=== PATIENT | female | born 1930 | race Caucasian/White ===

== ENCOUNTER 2016-09-06 15:39 | Inpatient (IN) | payer MEDICARE ==
[~2016-09-06 15:39] MED LIST: Sodium Chloride 0.9% 100 ML BAG ONE
--- NOTE | 2016-09-06 16:49 | RAD ---
TWO VIEW CHEST: 09/06/16 HISTORY: Cough. COMPARISON: 02/25/12. Lungs appear clear of infiltrate. Heart size is upper normal and stable. Vasculature is within abel l range. IMPRESSION: No acute abnormality identified. POS: [facility]
[2016-09-06] MEDS ORDERED: cefTRIAXone\\ROCEPHIN 1 GM VIAL ONE (17:08)
[2016-09-06 17:27] LABS: Hemoglobin 11.7 g/dL (12.0-16.0); Mean Corpuscular HGB CONC 33.7 g/dL (32.0-36.0); Mean Corpuscular Hemoglobin 30.5 pg (27.0-31.0); Mean Corpuscular Volume 90.7 fL (81.0-99.0); Platelet Count 109 thou/uL (130-400); RBC Distribution Width 12.7 % (11.5-14.5); Red Blood Cell (RBC) Count 3.83 mill/uL (4.20-5.40); White Blood Cell (WBC) Count 6.4 thou/uL (4.8-10.8)
[2016-09-06] MEDS ORDERED: Azithromycin 500 MG VIAL ONE (17:27)
[2016-09-06 17:28] LABS: #Basophils 0.1 thou/uL (0.0-0.2); #Lymphocytes 0.8 thou/uL (1.20-3.40); #Monocytes 0.6 thou/uL (0.11-0.59); #Neutrophils 4.9 thou/uL (1.40-6.50); %Eosinophils 0.1 % (0.0-10.0); %Lymphocytes 11.9 % (21.0-51.0); %Monocytes 9.8 % (0.0-10.0); %Neutrophils 77.2 % (42.0-75.0); Mean Platelet Volume 10.9 fL (7.4-10.4)
[2016-09-06 17:29] LABS: ALT (SGPT) 17 U/L (0-55); AST (SGOT) 24 U/L (5-34); Alkaline Phosphatase 64 U/L (40-150); Anion Gap 20 mmol/L (10-20); BUN (Urea Nitrogen) 8 mg/dL (9.8-20.1); Bilirubin, Total 0.6 mg/dL (0.2-1.2); Calc. Creatinine Clearance 0 mL/min (70-130); Calcium 8.8 mg/dL (7.8-10.44); Carbon Dioxide 21 mmol/L (23-31); Chloride 95 mmol/L (98-107); Estimated GFR-MDRD 75; Globulin 2.4 g/dL (2.4-3.5); Glucose 113 mg/dL (83-110); Potassium 3.5 mmol/L (3.5-5.1); Protein, Total 6.4 g/dL (5.8-8.1); Sodium 132 mmol/L (136-145)
[2016-09-06] MEDS ORDERED: Acetaminophen 500 MG TAB ONE (17:30)
[2016-09-06 18:04] VITALS: BMI 27.3
[2016-09-06] MEDS ORDERED: Ondansetron ODT 4 MG TAB PO PRN (18:16)
[2016-09-06] MEDS: Azithromycin 500 MG in Sodium Chloride 0.9% 250 ML 250 ML IVPB SCH (19:52)
[2016-09-06] MEDS: Oseltamivir 75 MG CAP PO SCH (22:15)
[2016-09-07] MEDS: Acetaminophen 500 MG TAB PO PRN ×2 (00:07→08:14)
[2016-09-07] MEDS: Bisoprolol Fumarate 5 MG TAB PO SCH (09:08)
[2016-09-07] MEDS: Oseltamivir 75 MG CAP PO SCH ×2 (09:08→21:36)
[2016-09-07] MEDS: Simvastatin 5 MG TAB PO SCH (09:08)
[2016-09-07] MEDS: Lisinopril 10 MG TAB PO SCH ×2 (09:08→21:36)
[2016-09-07] MEDS ORDERED: Bisoprolol Fumarate 5 MG TAB PO SCH (09:30)
[2016-09-07] MEDS ORDERED: Simvastatin 5 MG TAB PO SCH (09:30)
--- NOTE | 2016-09-07 14:20 | HP ---
DATE OF ADMISSION: 09/06/2016. CHIEF COMPLAINT: Fever and achy. PRESENT ILLNESS: The patient is an 86-year-old white female who has a history of hypertension and h yperlipidemia. She lives alone and is independent of all her ADLs. The patient presented to the em ergency room on the afternoon of the day of admission complaining of fever of 102 and achy and fatig ue. Her symptoms started 3 or 4 days previously what she thought was allergy symptoms, and she had a little runny nose and then this developed into sore throat and then two days before admission, she started running fever, developed productive cough, and achiness. The patient was brought to the em ergency room on 09/06/2016. There she was afebrile. Her lab showed an H\T\H of 11.7 and 34.8, whit e cell count 6400 with 77% segs, 12% lymphocytes, and platelet count of 109,000. Her sodium was 132 , potassium 3.5, BUN 8, creatinine 0.73, estimated GFR 75, glucose 113, albumin 4. Her group A stre p screen was negative. Her nasal swab for Influenza A and B was positive for influenza B. Her ches t x-ray was reviewed by Radiology, who was thought this was normal. On my inspection, there was pos sibly some very early alveolar infiltrate in the right lower lobe. Patient was admitted to the hosp ital with a diagnosis of influenza and pneumonia. She was started on IV ceftriaxone and on IV azith romycin. The patient was seen early on the morning of 09/07/2016. She said she is feeling better. Throat st ill a little sore, but it does feel better. She has had no fever through the night. PAST HISTORY: Hypertension, hypercholesterolemia, gastroesophageal reflux disease, appendectomy, be nign lump removed from the breast. The patient has not had a colonoscopy, has refused this. Osteoa rthritis, particularly of the right knee. PRESENT MEDICINES: Pravastatin 20 mg daily, Pepcid-AC 10 mg 1 a day as needed, Claritin 10 mg daily as needed, bisoprolol 10 mg daily, lisinopril 20 mg b.i.d., amlodipine 5 mg daily, hydralazine 10 m g b.i.d. ALLERGIES: CODEINE, causes trouble breathing. PANTOPRAZOLE , causes headaches and cramps. REVIEW OF SYSTEMS: GENERAL: The patient does not think she has lost any weight. She has had fever for the last couple of days up to 102. HEAD AND NECK: Throat is sore and she has had a little nasal drainage. PULMONARY: Patient has had a productive cough for the last 2-3 days. CARDIOVASCULAR: No complaints. GASTROINTESTINAL: No nausea, vomiting or change in bowel habits. GENITOURINARY: The patient had some urge incontinence that is controlled. MUSCULOSKELETAL: The patient has some general achiness. ADLs: The patient is independent of all er ADLs. HABITS: Alcohol, none. Tobacco, none. SOCIAL HISTORY: Patient is a . She lives alone. CODE STATUS: FULL CODE. PHYSICAL EXAMINATION: GENERAL: Shows a pleasant 86-year-old white female who is lying in bed. She is alert and recognize s me, and alert and oriented x3. VITAL SIGNS: Temp is 98.9, pulse 66, respirations 16, O2 sat 94% on 2 liters, blood pressure 157/65 , weight 149. HEAD: Normocephalic and atraumatic. EARS: Right TM blocked by little cerumen. Left TM is clear. EYES: Pupils are equal, round, and reactive. Sclerae nonicteric. Extraocular musculature is intac t. NOSE: Normal. MOUTH AND THROAT: Normal. NECK: Supple, no adenopathy, no thyromegaly. LUNGS: Have some fine rales at the right posterior base, otherwise chest is clear. HEART: Regular rate, no murmurs. ABDOMEN: Soft, no organomegaly, nor areas of tenderness. EXTREMITIES: No edema. SKIN: No rash. NEUROLOGIC: Patient alert and oriented x3 with no focal weakness. IMPRESSION: 1. Influenza type B. 2. Early right basilar pneumonia. 3. Hypertension. 4. Hyperlipidemia. 5. Gastroesophageal reflux disease. 6. Urge incontinence. 7. Osteoarthritis, particularly of the right knee. PLAN: The patient has been admitted to the hospital where she has been started on ceftriaxone and a zithromycin and also on Tamiflu. We will continue this and gradually increase activities with her t olerance. Tylenol as needed for discomfort. The patient is wearing intermittent compression wraps to the legs for DVT prophylaxis.
[2016-09-07] MEDS: cefTRIAXone\\ROCEPHIN 1 GM in Sodium Chloride 0.9% 100 ML IVPB SCH (16:55)
[2016-09-07] MEDS: Azithromycin 500 MG in Sodium Chloride 0.9% 250 ML 250 ML IVPB SCH (17:35)
[2016-09-08 07:15] LABS: Anion Gap 14 mmol/L (10-20); BUN (Urea Nitrogen) 8 mg/dL (9.8-20.1); Calc. Creatinine Clearance 61 mL/min (70-130); Calcium 8.4 mg/dL (7.8-10.44); Carbon Dioxide 26 mmol/L (23-31); Chloride 103 mmol/L (98-107); Estimated GFR-MDRD 82; Glucose 92 mg/dL (83-110); Potassium 3.3 mmol/L (3.5-5.1); Sodium 140 mmol/L (136-145)
--- NOTE | 2016-09-08 09:17 | PRG ---
DATE OF SERVICE: 09/08/2016 SUBJECTIVE: The patient said she feels better. She is not as achy, does not think she has had any fever. The patient said she still has a little dry cough. OBJECTIVE: The patient looks a little better. She is alert. Her vital signs show temperature of 9 8.3, earlier it was 99.7, pulse 68, respirations 18, O2 sat 95% on 2 liters, blood pressure 152/64. Lungs are clear. Heart, regular rate. Laboratory; showed sodium 140, potassium 3.3, BUN 8, creatinine 0.68, glucose 92. ASSESSMENT: 1. Influenza type B. A. Improved as of 09/08/16. 2. Early right basilar pneumonia. A. Improved clinically as of 09/08/2016. 3. Hypertension. 4. Hyperlipidemia. 5. Gastroesophageal reflux disease. 6. Urge incontinence. 7. Osteoarthritis, particularly of the right knee. PLAN: Will see if the patient can do without the supplemental O2. We will stop the IV fluids. Rep eat chest x-ray. Increase activities. Will place the patient on a potassium supplement.
[2016-09-08] MEDS: Simvastatin 5 MG TAB PO SCH (10:12)
[2016-09-08] MEDS: Lisinopril 10 MG TAB PO SCH ×2 (10:12→20:47)
[2016-09-08] MEDS: Bisoprolol Fumarate 5 MG TAB PO SCH (10:13)
[2016-09-08] MEDS: Oseltamivir 75 MG CAP PO SCH ×2 (10:13→20:49)
[2016-09-08 10:23] LABS: Band 5 % (5-11); Eosinophils 1 % (0-10); Hemoglobin 10.8 g/dL (12.0-16.0); Lymphocytes 28 % (21-51); MDiff Complete? YES; Mean Corpuscular Hemoglobin 30.9 pg (27.0-31.0); Mean Corpuscular Volume 90.8 fl (81.0-99.0); Monocytes 10 % (0-10); Neutrophil 56 % (42-75); PLT Morphology Comment Appears Decreased; Platelet Count 67 thou/uL (130-400); RBC Distribution Width 12.5 % (11.5-14.5); Red Blood Cell (RBC) Count 3.49 mill/uL (4.20-5.40); White Blood Cell (WBC) Count 2.6 thou/uL (4.8-10.8)
--- NOTE | 2016-09-08 14:41 | RAD ---
TWO VIEW CHEST: HISTORY: Cough. Possible pneumonia. COMPARISON: 09/06/16. FINDINGS: The lungs appear clear of infiltrate. Interstitial prominence appears chronic and stable. Heart si ze is upper normal and stable. Vascular markings within normal range. IMPRESSION: No evidence of acute infiltrate identified. POS: [facility]
[2016-09-08] MEDS: cefTRIAXone\\ROCEPHIN 1 GM in Sodium Chloride 0.9% 100 ML IVPB SCH (17:21)
[2016-09-08] MEDS: Potassium Chloride 10 MEQ TAB PO SCH (17:21)
[2016-09-08] MEDS: Azithromycin 500 MG in Sodium Chloride 0.9% 250 ML 250 ML IVPB SCH (17:23)
[2016-09-09 06:20] LABS: Anion Gap 12 mmol/L (10-20); BUN (Urea Nitrogen) 8 mg/dL (9.8-20.1); Calc. Creatinine Clearance 63 mL/min (70-130); Calcium 8.7 mg/dL (7.8-10.44); Carbon Dioxide 26 mmol/L (23-31); Chloride 104 mmol/L (98-107); Estimated GFR-MDRD 85; Glucose 90 mg/dL (83-110); Potassium 3.3 mmol/L (3.5-5.1); Sodium 139 mmol/L (136-145)
[2016-09-09] MEDS: Potassium Chloride 10 MEQ TAB PO SCH ×2 (08:34→18:11)
[2016-09-09] MEDS: Bisoprolol Fumarate 5 MG TAB PO SCH (08:35)
[2016-09-09] MEDS: Lisinopril 10 MG TAB PO SCH ×2 (08:35→21:02)
[2016-09-09] MEDS: Simvastatin 5 MG TAB PO SCH (08:35)
[2016-09-09] MEDS: Oseltamivir 75 MG CAP PO SCH ×2 (08:35→21:02)
--- NOTE | 2016-09-09 09:13 | PRG ---
DATE OF SERVICE: 09/09/2016 SUBJECTIVE: The patient said she feels a lot better. Therapy began working with her yesterday. St ill coughing some, but not as much. Her achiness, fatigue is better. OBJECTIVE: GENERAL: The patient is sitting up in bed, smiling. She looks much better. She appears in no dist ress. VITAL SIGNS: Her temperature is 98.4, pulse 65, respirations 18, O2 sat 94% on room air, blood pres sure 137/61. LUNGS: Clear except for some rales at the right posterior base. HEART: Regular rate. SKIN: No rash. X-RAY FINDINGS: Chest x-ray that was done yesterday showed no infiltrates present. This was review ed by myself and lungs all are clear and there is no evidence of any failure. LABORATORY DATA: Her sodium is 139, potassium 3.3, BUN 8, creatinine 0.66, glucose 90. ASSESSMENT: Please type the assessment from the progress note of 09/08/2016. 1. A. Please change the date to 09/09/2016. 2. A. Improved. Still has some rales at the right posterior base, but chest x-ray clear as of . 8. Generalized weakness from acute illness. PLAN: Continue physical therapy. We will discontinue the azithromycin. We will continue the ceftr iaxone. Continue physical therapy. Anticipate that the patient will probably be able to be dischar ged tomorrow.
[2016-09-09] MEDS: cefTRIAXone\\ROCEPHIN 1 GM in Sodium Chloride 0.9% 100 ML IVPB SCH (18:07)
[2016-09-09] MEDS: Azithromycin 500 MG in Sodium Chloride 0.9% 250 ML 250 ML IVPB SCH (18:08)
[2016-09-09] MEDS: Acetaminophen 500 MG TAB PO PRN (23:47)
[2016-09-10 05:19] LABS: Anion Gap 12 mmol/L (10-20); BUN (Urea Nitrogen) 10 mg/dL (9.8-20.1); Calc. Creatinine Clearance 58 mL/min (70-130); Calcium 9.4 mg/dL (7.8-10.44); Carbon Dioxide 28 mmol/L (23-31); Chloride 103 mmol/L (98-107); Estimated GFR-MDRD 76; Glucose 131 mg/dL (83-110); Sodium 139 mmol/L (136-145)
[2016-09-10 05:48] LABS: Hemoglobin 10.9 g/dL (12.0-16.0); Mean Corpuscular HGB CONC 33.5 g/dL (32.0-36.0); Mean Corpuscular Hemoglobin 30.3 pg (27.0-31.0); Mean Corpuscular Volume 90.3 fl (81.0-99.0); Mean Platelet Volume 7.9 fL (7.4-10.4); Platelet Count 88 thou/uL (130-400); RBC Distribution Width 12.2 % (11.5-14.5)
[2016-09-10 05:49] LABS: Lymphocytes 56 % (21-51); MDiff Complete? YES; Monocytes 9 % (0-10); Neutrophil 35 % (42-75); PLT Morphology Comment Appears Decreased
--- NOTE | 2016-09-10 08:54 | DIS ---
FINAL DIAGNOSES: 1. Influenza type B. A. Early right basilar pneumonia, improved as of 09/10/2016. 2. Hypertension. 3. Hyperlipidemia. 4. Gastroesophageal reflux disease. 5. Urge incontinence. 6. Osteoarthritis, particularly of the right knee. SUMMARY: The patient is an 86-year-old white female who has a history of hypertension, hyperlipidem ia, urge incontinence, gastroesophageal reflux disease and arthritis of the right knee. She lives w ith her son and family, but is independent of all her ADLs. The patient was brought to the emergenc y room on the day of admission complaining of a 3-4 day history that started with allergy symptoms, runny nose and cough and then developed 2 days prior to admission into fever up to 102, productive c ough, and generalized achiness and fatigue. In the emergency room, her H\T\H was 11.7 and 34.8. Wh ite cell count 6400 with 77% segs. Her nasal swab for influenza was positive for influenza B. Ches t x-ray was read as normal, but on review by myself and the ER physician has a possibility of some v karthikeyan mild alveolar infiltrates of the right base. The patient was admitted to the hospital and was c autiously hydrated with fluids, was placed on Tamiflu and IV ceftriaxone and azithromycin. HOSPITAL COURSE: The patient was continued on the IV fluids and IV antibiotics, the ceftriaxone and azithromycin and her Tamiflu. She was given Tylenol and ibuprofen as needed for the aches and pain s and Robitussin-DM for the cough. Her fever gradually resolved over the next 48 hours. Her strep screen of the throat was negative. Blood cultures had no growth. Followup chest x-ray showed the l ungs to be clear on examination. The patient's continued to improve, but still had some cough and l angelica exam revealed that she had some rales at the right posterior base. It was felt that the patient had a very early pneumonia at that right base with the fever, cough, and the rales found at that ba se. Clinically, there was evidence of pneumonia, although radiographically this did not show up. A fter 3 days, the IV azithromycin was stopped. Physical Therapy worked with the patient to ensure th at she was able to transfer and able to ambulate. The patient did very well with this. Her follow up blood count showed that white cell count dropped to 2.6 on 09/08/2016 and to 2.0 on 09/10/2016 wi th 35% segs, 50% lymphocytes, and platelet count of 88, all compatible with the influenza. By 09/10, her condition had improved such that it is felt like she could be managed at home and can con tinue her convalescence there. DISPOSITION: DIET: Regular diet with no added salt. ACTIVITIES: Encourage the patient to gradually increase her activity back to her usual level. MEDICATIONS: Cefdinir 300 mg b.i.d. x6 days, hydralazine 10 mg b.i.d., lisinopril 20 mg b.i.d., pra vastatin 20 mg daily, Pepcid-AC 10 mg daily as needed, bisoprolol 10 mg daily, amlodipine 5 mg daily , Tamiflu 75 mg 1 b.i.d. #3 tablets. FOLLOW UP: The patient will be seen in followup in 2 weeks in my office with a CBC and basic metabo lic panel.
[2016-09-10] MEDS: Potassium Chloride 10 MEQ TAB PO SCH (08:56)
[2016-09-10] MEDS: Bisoprolol Fumarate 5 MG TAB PO SCH (08:59)
[2016-09-10] MEDS: Lisinopril 10 MG TAB PO SCH (09:00)
[2016-09-10] MEDS: Simvastatin 5 MG TAB PO SCH (09:00)
[2016-09-10] MEDS: Oseltamivir 75 MG CAP PO SCH (09:00)
[2016-09-10 10:55] VITALS: BP 148/67; TEMP 98.2
== END 2016-09-10 11:28 | disposition home or self-care (01) | DRG 195 ==
LOC: MADERS 15:39 → MADMS 16:52
PROVIDERS: ADMIT Family Medicine; ATTEND Family Medicine
DX: J10.00 Influenza due to other identified influenza virus with unspecified type of pneumonia (principal); I10 Essential (primary) hypertension; K21.9 Gastro-esophageal reflux disease without esophagitis; M17.11 Unilateral primary osteoarthritis, right knee; N39.41 Urge incontinence; E78.00 Pure hypercholesterolemia, unspecified
CPT/HCPCS: 36415; 71020; 80048; 80053; 85025; 87040; 87081; 87430; 96365; A4216; G8978-GP-CI; G8979-GP-CI; J0456; J0696; J7050

== ENCOUNTER 2016-09-23 09:41 | Outpatient (CLI) | payer MEDICARE ==
[2016-09-23 10:37] LABS: #Lymphocytes 1.6 thou/uL (1.20-3.40); #Monocytes 0.5 thou/uL (0.11-0.59); %Eosinophils 0.3 % (0.0-10.0); %Lymphocytes 38.2 % (21.0-51.0); %Monocytes 12.6 % (0.0-10.0); %Neutrophils 47.9 % (42.0-75.0); Hemoglobin 11.2 g/dL (12.0-16.0); Mean Corpuscular HGB CONC 33.3 g/dL (32.0-36.0); Mean Corpuscular Hemoglobin 30.6 pg (27.0-31.0); Mean Corpuscular Volume 91.8 fl (81.0-99.0); Mean Platelet Volume 8.2 fL (7.4-10.4); Platelet Count 191 thou/uL (130-400); RBC Distribution Width 12.9 % (11.5-14.5); Red Blood Cell (RBC) Count 3.67 mill/uL (4.20-5.40); White Blood Cell (WBC) Count 4.2 thou/uL (4.8-10.8)
[2016-09-23 10:57] LABS: ALT (SGPT) 6 U/L (0-55); AST (SGOT) 12 U/L (5-34); Alkaline Phosphatase 55 U/L (40-150); Anion Gap 12 mmol/L (10-20); BUN (Urea Nitrogen) 14 mg/dL (9.8-20.1); Bilirubin, Direct 0.3 mg/dL (0.1-0.3); Bilirubin, Total 0.7 mg/dL (0.2-1.2); Calc. Creatinine Clearance 0 mL/min (70-130); Calcium 9.3 mg/dL (7.8-10.44); Carbon Dioxide 26 mmol/L (23-31); Cardiac Risk 3.4 (Less than 4.5); Chloride 101 mmol/L (98-107); Cholesterol 178 mg/dL (< 200 Desired); Estimated GFR-MDRD 60; Glucose 91 mg/dL (83-110); HDL Cholesterol 52 mg/dL (>60 Neg Risk); LDL Cholesterol, Calculated 104 mg/dL; Potassium 4.2 mmol/L (3.5-5.1); Protein, Total 6.4 g/dL (5.8-8.1); Sodium 135 mmol/L (136-145); Triglycerides 112 mg/dL (Less than 150)
== END 2016-09-23 09:42 | disposition home or self-care (01) ==
LOC: MADLABBHPM 09:41
PROVIDERS: ATTEND Family Medicine
DX: E78.2 Mixed hyperlipidemia (principal); D50.8 Other iron deficiency anemias; I10 Essential (primary) hypertension
CPT/HCPCS: 36415; 80048; 80061; 80076; 85025

== ENCOUNTER 2017-01-27 09:13 | Outpatient (CLI) | payer MEDICARE ==
[2017-01-27 10:38] LABS: #Basophils 0.1 thou/uL (0.0-0.2); #Eosinphils 0.1 thou/uL (0.0-0.7); #Lymphocytes 1.4 thou/uL (1.20-3.40); #Monocytes 0.5 thou/uL (0.11-0.59); #Neutrophils 2.3 thou/uL (1.40-6.50); %Basophils 1.3 % (0.0-1.0); %Eosinophils 1.7 % (0.0-10.0); %Lymphocytes 32.4 % (21.0-51.0); %Monocytes 11.6 % (0.0-10.0); Hemoglobin 11.7 g/dL (12.0-16.0); Mean Corpuscular HGB CONC 32.7 g/dL (32.0-36.0); Mean Corpuscular Hemoglobin 30.3 pg (27.0-31.0); Mean Corpuscular Volume 92.7 fl (81.0-99.0); Mean Platelet Volume 7.7 fL (7.4-10.4); Platelet Count 145 thou/uL (130-400); RBC Distribution Width 12.6 % (11.5-14.5); Red Blood Cell (RBC) Count 3.87 mill/uL (4.20-5.40); White Blood Cell (WBC) Count 4.2 thou/uL (4.8-10.8)
[2017-01-27 10:50] LABS: ALT (SGPT) 14 U/L (8-55); AST (SGOT) 16 U/L (5-34); Albumin 4.1 g/dL (3.4-4.8); Alkaline Phosphatase 69 U/L (40-150); Anion Gap 13 mmol/L (10-20); BUN (Urea Nitrogen) 13 mg/dL (9.8-20.1); Bilirubin, Direct 0.2 mg/dL (0.1-0.3); Bilirubin, Total 0.6 mg/dL (0.2-1.2); Calc. Creatinine Clearance 0 mL/min (70-130); Calcium 9.4 mg/dL (7.8-10.44); Carbon Dioxide 27 mmol/L (23-31); Cardiac Risk 2.7 (Less than 4.5); Chloride 103 mmol/L (98-107); Cholesterol 189 mg/dl (< 200 Desired); Estimated GFR-MDRD 69; Glucose 95 mg/dL (83-110); HDL Cholesterol 69 mg/dL (>60 Neg Risk); LDL Cholesterol, Calculated 101 mg/dL; Potassium 4.5 mmol/L (3.5-5.1); Protein, Total 6.9 g/dL (6.0-8.3); Sodium 138 mmol/L (136-145); Triglycerides 94 mg/dL (Less than 150)
== END 2017-01-27 09:14 | disposition home or self-care (01) ==
LOC: MADLABBHPM 09:13
PROVIDERS: ATTEND Family Medicine
DX: E78.2 Mixed hyperlipidemia (principal); I10 Essential (primary) hypertension
CPT/HCPCS: 36415; 80048; 80061; 80076; 84443; 85025